=== PATIENT | female | born 1960 | race Caucasian/White ===

== ENCOUNTER 2017-03-23 14:21 | Emergency (ER) | payer MEDICARE ==
[~2017-03-23] VITALS: Ht 165.1 cm; Wt 102.6 kg
[2017-03-23] MEDS ORDERED: TYLE500T78 PO (14:33)
[2017-03-23] MEDS ORDERED: CARV3.12 PO (14:33)
[2017-03-23] MEDS ORDERED: ADDE1TAB14 PO (14:33)
[2017-03-23] MEDS ORDERED: KLON0.5T PO (14:33)
[2017-03-23] MEDS ORDERED: DULO30CA PO (14:33)
[2017-03-23] MEDS ORDERED: ADDE30CA3 PO (14:33)
[2017-03-23] MEDS ORDERED: ONDANSETRON 4MG/2ML VIAL (J2405) IV ONE (15:00)
[2017-03-23] MEDS ORDERED: KETOROLAC 30 MG/ML VIAL (J1885) IV ONE (15:00)
[2017-03-23] MEDS ORDERED: NS 1,000 ML IV ONE (15:00)
[2017-03-23 15:19] LABS: BASO # 0.1 K/mm3 (0.0-0.2); EOS # 0.2 K/mm3 (0.0-0.50); LARGE UNSTAINED CELL # 0.1 K/mm3 (0.0-0.4); LARGE UNSTAINED CELL % 1.6 % (0.0-4.0); LYMPH # 1.6 K/mm3 (1.5-4.5); LYMPH % 25.8 % (24.0-44.0); MEAN CORPUSCULAR HEMOGLOBIN 30.5 pg (27.0-33.0); MEAN CORPUSCULAR HGB CONC 33.9 g/dl (32.0-36.5); MEAN CORPUSCULAR VOLUME 89.8 fl (80.0-96.0); MONO # 0.3 K/mm3 (0.0-0.8); MONO % 5.2 % (0.0-5.0); NEUTROPHILS # 3.7 K/mm3 (1.8-7.7); NEUTROPHILS % 63.4 % (36.0-66.0); PLATELET COUNT, AUTOMATED 205 k/mm3 (150-450); RED CELL DISTRIBUTION WIDTH 13.4 % (11.5-14.5); WHITE BLOOD COUNT 5.8 K/mm3 (4.0-10.0)
--- NOTE | 2017-03-23 15:19 | REP ---
Clinical: Right flank pain. Findings: Acute right-sided moderate obstructive uropathy with hydroureteronephrosis and periureteral stranding secondary to an obstructing 3 mm calculus at the ureterovesicle junction (image [id number]). The left kidney demonstrates 1 cm angiomyolipoma. Urinary tract system is otherwise unremarkable. Liver, spleen, pancreas, gallbladder, and bilateral adrenal glands are normal. The enteric system is without obstruction or acute inflammatory process. Pelvis demonstrates collapsed bladder and evidence for prior hysterectomy. No ascites. No free air. No adenopathy. Abdominal aorta without aneurysm. Surrounding musculoskeletal structures are intact. Lung bases clear. Impression: 1. Moderate acute right-sided obstructive uropathy with a 3 mm calculus at the ureterovesicle junction. 2. 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 Signed by Donny Delgado MD 03/23/2017 03:11 P
[2017-03-23 15:27] LABS: CALCIUM OXALATE CRYSTALS LARGE
[2017-03-23] MEDS ORDERED: MORPHINE 4 MG/ML 1ML SYRINGE IV ONE (15:30)
[2017-03-23 15:38] VITALS: BP 132/88
[2017-03-23 15:48] LABS: ALBUMIN 4.1 GM/DL (3.2-5.2); ALBUMIN/GLOBULIN RATIO 1.52 (1.00-1.93); BILIRUBIN,DIRECT 0.2 MG/DL (0.0-0.2); BILIRUBIN,TOTAL 0.6 MG/DL (0.2-1.0); CALCIUM LEVEL 10.5 MG/DL (8.5-10.1); CREATININE FOR GFR 1.15 MG/DL (0.55-1.02); GLOMERULAR FILTRATION RATE 52.2 (>51); POTASSIUM SERUM 4.1 MEQ/L (3.5-5.1); TOTAL PROTEIN 6.8 GM/DL (6.4-8.2)
[2017-03-23] MEDS ORDERED: ZOFR4TAB3 PO (16:27)
[2017-03-23] MEDS ORDERED: FLOM5CAP PO (16:27)
[2017-03-23] MEDS ORDERED: PERC5TAB12 PO (16:27)
== END 2017-03-23 16:38 | disposition home or self-care (01) ==
LOC: MERGE 14:21 → M ED 14:21
DX: N20.1 Calculus of ureter (principal); D17.71 Benign lipomatous neoplasm of kidney; E66.9 Obesity, unspecified; Z98.84 Bariatric surgery status; F17.200 Nicotine dependence, unspecified, uncomplicated; Z79.899 Other long term (current) drug therapy; Z91.040 Latex allergy status; Z88.0 Allergy status to penicillin
CPT/HCPCS: 74176; 80048; 80076; 81001; 82150; 83690; 85025; 96374; 96375; 99283; J1885; J2405